=== PATIENT | female | born 1995 | race Caucasian/White ===

== ENCOUNTER → 2018-11-05 | Outpatient (REF) | payer OTHER ==
[2018-11-05 14:26] LABS: INFLUENZA A AMPLIFICATION POSITIVE (NEGATIVE); INFLUENZA B AMPLIFICATION NEGATIVE (NEGATIVE)
== END ==
LOC: M LAB REF 13:29
PROVIDERS: ATTEND Physician Assistant
DX: J11.1 Influenza due to unidentified influenza virus with other respiratory manifestations (principal)

== ENCOUNTER → 2019-03-03 | Outpatient (CLI) | payer OTHER ==
--- NOTE | 2019-03-03 11:48 | REP ---
LEFT KNEE SERIES, FIVE VIEWS: There is no evidence of an acute fracture, dislocation or intrinsic bone disease. IMPRESSION: No fracture or dislocation. Electronically Signed by Velasquez Lieberman MD 03/03/2019 04:37 P
== END ==
LOC: M WUC 10:35
PROVIDERS: ATTEND Physician Assistant
DX: S83.422A Sprain of lateral collateral ligament of left knee, initial encounter (principal); X58.XXXA Exposure to other specified factors, initial encounter; Y92.89 Other specified places as the place of occurrence of the external cause

== ENCOUNTER → 2019-05-14 | Outpatient (REF) | payer OTHER, MEDICAID ==
[2019-05-14 17:27] LABS: ALBUMIN 4.1 GM/DL (3.2-5.2); ALT/SGPT 28 U/L (12-78); BILIRUBIN,TOTAL 0.3 MG/DL (0.2-1.0); BLOOD UREA NITROGEN 19 MG/DL (7-18); CALCIUM LEVEL 9.1 MG/DL (8.5-10.1); CARBON DIOXIDE LEVEL 25 MEQ/L (21-32); CHLORIDE LEVEL 105 MEQ/L (98-107); CHOLESTEROL LEVEL 151 MG/DL (<200); CHOLESTEROL RISK RATIO 2.126 (<5); CREATININE FOR GFR 0.62 MG/DL (0.55-1.30); GLOMERULAR FILTRATION RATE > 60.0 (>60); GLUCOSE, FASTING 88 MG/DL (70-100); HCG, SERUM QUANTITATIVE < 1.0 MIU/ML; HDL CHOLESTEROL 71 MG/DL (>40); LDL CHOLESTEROL 72 MG/DL (<100); NON-HDL-C 80 MG/DL; POTASSIUM SERUM 4.1 MEQ/L (3.5-5.1); SODIUM LEVEL 138 MEQ/L (136-145); THYROID STIMULATING HORMONE 0.514 uIU/ML (0.358-3.740); TOTAL PROTEIN 7.4 GM/DL (6.4-8.2); TRIGLYCERIDES LEVEL 38 MG/DL (<150)
[2019-05-14 17:29] LABS: BASO # 0.1 10^3/uL (0.0-0.2); BASO % 0.9 % (0.0-1.0); EOS # 0.2 10^3/uL (0.0-0.50); EOS % 2.9 % (0.0-3.0); HEMATOCRIT 41.6 % (36.0-47.0); HEMOGLOBIN 13.9 g/dl (12.0-15.5); LYMPH # 1.9 10^3/uL (1.5-6.5); LYMPH % 24.4 % (24.0-44.0); MEAN CORPUSCULAR HEMOGLOBIN 30.3 pg (27.0-33.0); MEAN CORPUSCULAR HGB CONC 33.4 g/dl (32.0-36.5); MEAN CORPUSCULAR VOLUME 90.8 fl (80.0-96.0); MONO # 0.4 10^3/uL (0.0-0.8); MONO % 4.9 % (0.0-5.0); NEUTROPHILS # 5.3 10^3/uL (1.8-7.7); NEUTROPHILS % 66.5 % (36.0-66.0); PLATELET COUNT, AUTOMATED 236 10^3/uL (150-450); RED BLOOD COUNT 4.58 10^6/uL (4.00-5.40); WHITE BLOOD COUNT 7.9 10^3/uL (4.0-10.0)
[2019-05-14 18:10] LABS: HEMOGLOBIN A1c 5.2 %
== END ==
LOC: M LAB REF 16:37
PROVIDERS: ATTEND Nurse Practitioner Family
DX: Z00.01 Encounter for general adult medical examination with abnormal findings (principal); N91.2 Amenorrhea, unspecified

== ENCOUNTER → 2020-01-13 | Outpatient (REF) | payer OTHER ==
[2020-01-13 17:55] LABS: HEMATOCRIT 40.4 % (36.0-47.0); HEMOGLOBIN 13.5 g/dl (12.0-15.5); MEAN CORPUSCULAR HEMOGLOBIN 29.5 pg (27.0-33.0); MEAN CORPUSCULAR HGB CONC 33.4 g/dl (32.0-36.5); MEAN CORPUSCULAR VOLUME 88.2 fl (80.0-96.0); PLATELET COUNT, AUTOMATED 271 10^3/uL (150-450); RED BLOOD COUNT 4.58 10^6/uL (4.00-5.40); WHITE BLOOD COUNT 10.6 10^3/uL (4.0-10.0)
[2020-01-13 18:23] LABS: HCG, SERUM QUANTITATIVE 6220 MIU/ML
[2020-01-14 09:18] LABS: HEPATITIS B SURFACE ANTIGEN NEGATIVE (NEGATIVE)
[2020-01-14 09:45] LABS: HEPATITIS C VIRUS ABY INDEX 0.1 INDEX (<0.8)
[2020-01-14 09:46] LABS: HIV 1&2 SCREEN CENTAUR NEGATIVE (NEGATIVE)
== END ==
LOC: M LAB REF 17:20
PROVIDERS: ATTEND Obstetrics & Gynecology
DX: Z32.01 Encounter for pregnancy test, result positive (principal)

== ENCOUNTER → 2020-01-20 | Outpatient (CLI) | payer OTHER ==
--- NOTE | 2020-01-20 19:01 | REP ---
Clinical: Dating and viability. Technique: Transabdominal first trimester obstetrical ultrasound with color Doppler evaluation. Findings: This examination demonstrates early intrauterine including gestational sac, yolk sac and pole. CRL of 5 mm corresponds to 6 weeks 1 day gestational age with estimated date of delivery 09/13/2020. heart rate equals 118 beats per minute. Impression: Single live early intrauterine at 6 weeks 1 day gestational age. Complete anatomical assessment should be performed at 19-20 weeks.
== END ==
LOC: M WHC 08:07
PROVIDERS: ATTEND Obstetrics & Gynecology
DX: O36.80X0 Pregnancy with inconclusive fetal viability, not applicable or unspecified (principal); Z3A.01 Less than 8 weeks gestation of pregnancy

== ENCOUNTER 2020-01-24 10:30 | Emergency (ER) | payer OTHER ==
[~2020-01-24] VITALS: Ht 170.2 cm; Wt 80.8 kg
[2020-01-24] MEDS ORDERED: METOCLOPRAMIDE INJ 10MG/2ML VIAL (J2765 PER 1) IV ONE (11:15)
[2020-01-24] MEDS ORDERED: NS 1,000 ML IV ONE (11:15)
[2020-01-24 11:18] LABS: HEMATOCRIT 41.4 % (36.0-47.0); MEAN CORPUSCULAR HEMOGLOBIN 28.9 pg (27.0-33.0); MEAN CORPUSCULAR HGB CONC 33.8 g/dl (32.0-36.5); MEAN CORPUSCULAR VOLUME 85.4 fl (80.0-96.0); PLATELET COUNT, AUTOMATED 267 10^3/uL (150-450); RED BLOOD COUNT 4.85 10^6/uL (4.00-5.40); WHITE BLOOD COUNT 11.4 10^3/uL (4.0-10.0)
[2020-01-24 12:17] LABS: ALBUMIN 4.1 GM/DL (3.2-5.2); ALT/SGPT 23 U/L (12-78); BILIRUBIN,DIRECT < 0.1 MG/DL (0.0-0.2); BILIRUBIN,TOTAL 0.6 MG/DL (0.2-1.0); HCG, SERUM QUANTITATIVE 39535 MIU/ML; LIPASE 94 U/L (73-393); TOTAL PROTEIN 7.7 GM/DL (6.4-8.2)
[2020-01-24 12:55] VITALS: BP 132/67
== END 2020-01-24 12:58 | disposition home or self-care (01) ==
LOC: M ED 10:30
DX: O21.9 Vomiting of pregnancy, unspecified (principal); Z3A.01 Less than 8 weeks gestation of pregnancy
CPT/HCPCS: 80047; 80076; 83690; 84702; 85027; 96361; 96365; 99283; J2765

== ENCOUNTER 2023-05-21 20:25 | Emergency (ER) | payer OTHER ==
[~2023-05-21] VITALS: Ht 172.7 cm; Wt 67.3 kg
[2023-05-21] MEDS ORDERED: NS 1,000 ML IV ONE (20:50)
[2023-05-21 21:24] LABS: BASO # 0.1 10^3/uL (0.0-0.2); BASO % 0.6 % (0.0-1.0); EOS # 0.2 10^3/uL (0.0-0.5); EOS % 1.9 % (0.0-3.0); HEMOGLOBIN 11.8 g/dl (12.0-15.5); LYMPH # 2.4 10^3/uL (1.5-5.0); LYMPH % 27.1 % (24.0-44.0); MEAN CORPUSCULAR HEMOGLOBIN 29.8 pg (27.0-33.0); MEAN CORPUSCULAR HGB CONC 33.7 g/dl (32.0-36.5); MEAN CORPUSCULAR VOLUME 88.4 fl (80.0-96.0); MONO # 0.4 10^3/uL (0.0-0.8); MONO % 4.6 % (2.0-8.0); NEUTROPHILS # 5.7 10^3/uL (1.5-8.5); NEUTROPHILS % 65.3 % (36.0-66.0); PLATELET COUNT, AUTOMATED 227 10^3/uL (150-450); RED BLOOD COUNT 3.96 10^6/uL (4.00-5.40); WHITE BLOOD COUNT 8.8 10^3/uL (4.0-10.0)
[2023-05-21 21:27] LABS: BLOOD UREA NITROGEN 10 MG/DL (9-23); CALCIUM LEVEL 8.3 MG/DL (8.5-10.1); CARBON DIOXIDE LEVEL 21 MMOL/L (20-31); CHLORIDE LEVEL 110 MMOL/L (98-107); CREATININE FOR GFR 0.54 MG/DL (0.55-1.30); GLOMERULAR FILTRATION RATE > 60.0 (>60); GLUCOSE, FASTING 88 MG/DL (60-100); POTASSIUM SERUM 3.2 MMOL/L (3.5-5.1); SODIUM LEVEL 141 MMOL/L (136-145)
[2023-05-21 21:31] LABS: THYROID STIMULATING HORMONE 3.617 uIU/ML (0.55-4.78)
[2023-05-21 21:53] LABS: ETHYL ALCOHOL (ETHANOL) 0.003 % (0.000-0.010); HCG, SERUM QUALITATIVE NEGATIVE (NEGATIVE)
[2023-05-21 21:55] LABS: ACETAMINOPHEN LEVEL < 2.0 UG/ML (10.0-20.0); SALICYLATE LEVEL < 3.0 MG/DL (<30)
[2023-05-21 21:58] LABS: CPK CREATINE PHOSPHOKINASE 106 U/L (34-145); MB/CK RELATIVE INDEX 0.94 (< OR =4)
[2023-05-21 22:15] VITALS: BP 133/81; TEMP 98; O2SAT 100
== END 2023-05-21 22:37 | disposition home or self-care (01) ==
LOC: M ED 20:25
DX: R42 Dizziness and giddiness (principal); R53.1 Weakness; J45.909 Unspecified asthma, uncomplicated

== ENCOUNTER → 2023-06-24 | Outpatient (REF) | payer OTHER | LOC: M LAB REF 11:44 | PROVIDERS: ATTEND Physician Assistant | DX: J02.9 Acute pharyngitis, unspecified (principal) ==

== ENCOUNTER → 2024-08-17 | Outpatient (REF) | payer OTHER | LOC: M LAB REF 21:25 | PROVIDERS: ATTEND Physician Assistant Medical | DX: B34.9 Viral infection, unspecified (principal) ==

== ENCOUNTER → 2024-11-26 | Outpatient (REF) | payer OTHER ==
[2024-11-26 14:41] LABS: HEMATOCRIT 43.2 % (36.0-47.0); HEMOGLOBIN 14.5 g/dl (12.0-15.5); MEAN CORPUSCULAR HEMOGLOBIN 29.9 pg (27.0-33.0); MEAN CORPUSCULAR HGB CONC 33.6 g/dl (32.0-36.5); MEAN CORPUSCULAR VOLUME 89.1 fl (80.0-96.0); PLATELET COUNT, AUTOMATED 239 10^3/uL (150-450); RED BLOOD COUNT 4.85 10^6/uL (4.00-5.40); WHITE BLOOD COUNT 8.2 10^3/uL (4.0-10.0)
[2024-11-26 15:12] LABS: ALBUMIN 4.3 G/DL (3.2-5.2); ALKALINE PHOSPHATASE 53 U/L (35-104); ALT/SGPT 26 U/L (7.0-40); AST/SGOT 18 U/L (<34); BILIRUBIN,TOTAL 0.4 MG/DL (0.3-1.2); BLOOD UREA NITROGEN 14 MG/DL (9-23); CALCIUM LEVEL 9.3 MG/DL (8.5-10.1); CARBON DIOXIDE LEVEL 22 MMOL/L (20-31); CHLORIDE LEVEL 105 MMOL/L (98-107); CREATININE FOR GFR 0.57 MG/DL (0.55-1.30); GLOMERULAR FILTRATION RATE > 60.0 (>60); GLUCOSE, FASTING 100 MG/DL (60-100); POTASSIUM SERUM 4.6 MMOL/L (3.5-5.1); SODIUM LEVEL 139 MMOL/L (136-145); TOTAL PROTEIN 7.6 G/DL (5.7-8.2)
[2024-11-26 15:14] LABS: TOTAL 25(OH) VITAMIN D 38.6 NG/ML (20.0-100.0)
[2024-11-26 15:15] LABS: THYROID STIMULATING HORMONE 0.627 uIU/ML (0.55-4.78)
== END ==
LOC: M LAB REF 12:36
PROVIDERS: ATTEND Student in an Organized Health Care Education/Training Program
DX: Z00.01 Encounter for general adult medical examination with abnormal findings (principal)

== ENCOUNTER → 2025-03-29 | Outpatient (CLI) | payer OTHER ==
[2025-03-29 16:56] LABS: PLATELET COUNT, AUTOMATED 223 10^3/uL (150-450)
[2025-03-29 17:20] LABS: Trichomonas vaginalis (AMP) NOT DETECTED (NEGATIVE)
[2025-03-29 17:43] LABS: GC DNA AMPLIFICATION NEGATIVE (NEGATIVE)
[2025-03-29 17:50] LABS: HIV 1&2 SCREEN NEGATIVE (NEGATIVE)
[2025-03-29 17:57] LABS: HEPATITIS C VIRUS ABY INDEX < 0.02 INDEX (<0.8)
== END ==
LOC: M PLALAB 12:09
PROVIDERS: ATTEND Nurse Practitioner Family
DX: Z34.81 Encounter for supervision of other normal pregnancy, first trimester (principal)

== ENCOUNTER 2025-05-25 06:20 | Emergency (ER) | payer OTHER ==
[~2025-05-25] VITALS: Ht 170.2 cm; Wt 81.8 kg
[2025-05-25] MEDS ORDERED: PRENMIS3 PO (07:12)
[2025-05-25] MEDS ORDERED: BENA25CA4 PO (07:12)
[2025-05-25] MEDS: predniSONE 20 MG TAB PO ONE (07:16)
[2025-05-25] MEDS ORDERED: PRED20TA PO (07:17)
[2025-05-25 07:39] VITALS: BP 121/76; TEMP 97.3; O2SAT 98
== END 2025-05-25 07:45 | disposition home or self-care (01) ==
LOC: M ED 06:20
DX: O9A.212 Injury, poisoning and certain other consequences of external causes complicating pregnancy, second trimester (principal); T63.461A Toxic effect of venom of wasps, accidental (unintentional), initial encounter; O99.512 Diseases of the respiratory system complicating pregnancy, second trimester; J45.909 Unspecified asthma, uncomplicated; Z3A.22 22 weeks gestation of pregnancy
CPT/HCPCS: 99284; J7512

== ENCOUNTER → 2025-05-26 | Outpatient (CLI) | payer OTHER ==
[~2025-05-26] MED LIST: BENA25CA4 PO; PRED20TA PO; PRENMIS3 PO
== END ==
LOC: M WHC 07:03
PROVIDERS: ATTEND Obstetrics & Gynecology
DX: Z34.82 Encounter for supervision of other normal pregnancy, second trimester (principal); Z3A.22 22 weeks gestation of pregnancy

== ENCOUNTER → 2025-06-10 | Outpatient (CLI) | payer OTHER ==
[2025-06-10 17:55] LABS: PLATELET COUNT, AUTOMATED 209 10^3/uL (150-450)
[2025-06-10 17:59] LABS: GLUCOSE CHALLENGE TEST 1 HOUR 120 MG/DL (LESS THAN 140)
[2025-06-10 18:27] LABS: HIV 1&2 SCREEN NEGATIVE (NEGATIVE)
[2025-06-10 18:35] LABS: HEPATITIS C VIRUS ABY INDEX 0.03 INDEX (<0.8)
[2025-06-10 19:35] LABS: Trichomonas vaginalis (AMP) NOT DETECTED (NEGATIVE)
[2025-06-10 19:59] LABS: GC DNA AMPLIFICATION NEGATIVE (NEGATIVE)
== END ==
LOC: M PLALAB 13:58
PROVIDERS: ATTEND Obstetrics & Gynecology
DX: Z34.92 Encounter for supervision of normal pregnancy, unspecified, second trimester (principal)

== ENCOUNTER 2025-06-21 12:42 | Outpatient (CLI) | payer OTHER ==
[~2025-06-21] VITALS: Ht 170.2 cm; Wt 85.7 kg
[2025-06-21 12:59] VITALS: BP 118/55
[2025-06-21] MEDS ORDERED: ACET-907 PO (13:04)
[2025-06-21] MEDS ORDERED: HOME MED LIST COMPLETE! XX SCH (13:05)
[2025-06-21 14:07] VITALS: BP 119/57
[2025-06-21 15:39] LABS: PLATELET COUNT, AUTOMATED 216 10^3/uL (150-450)
[2025-06-21 15:54] LABS: INR 0.86
== END 2025-06-21 15:38 | disposition home or self-care (01) ==
LOC: M LDO 12:42
PROVIDERS: ATTEND Student in an Organized Health Care Education/Training Program
DX: O26.893 Other specified pregnancy related conditions, third trimester (principal); W50.1XXA Accidental kick by another person, initial encounter; Y92.9 Unspecified place or not applicable; Y93.9 Activity, unspecified; Y99.9 Unspecified external cause status; Z3A.26 26 weeks gestation of pregnancy
CPT/HCPCS: 36415; 59025; 85027; 85384; 85610; 85730; G0463

== ENCOUNTER 2025-07-20 13:34 | Outpatient (CLI) | payer OTHER ==
[~2025-07-20] VITALS: Ht 170.2 cm; Wt 89.9 kg
[~2025-07-20 13:34] MED LIST changes: +ACET-907 PO
[2025-07-20 13:55] VITALS: BP 134/81
[2025-07-20] MEDS ORDERED: HOME MED LIST COMPLETE! XX SCH (14:00)
[2025-07-20 14:40] VITALS: BP 120/74
== END 2025-07-20 15:30 | disposition home or self-care (01) ==
LOC: M LDO 13:34
PROVIDERS: ATTEND Advanced Practice Midwife
DX: O99.63 Diseases of the digestive system complicating the puerperium (principal); K42.9 Umbilical hernia without obstruction or gangrene; Z3A.30 30 weeks gestation of pregnancy
CPT/HCPCS: 59025; 76705; G0463

== ENCOUNTER → 2025-09-13 | Outpatient (CLI) | payer OTHER ==
[~2025-09-13] MED LIST changes: +ACET-1349 PO; +ACET-897 PO; +ACET32TAB PO; +ALBU2.5V10 NEB; +ALBU8.5H INH; +IBUP600T42 PO; +PEPT262S PO
== END ==
LOC: M WHC 13:12
PROVIDERS: ATTEND Nurse Practitioner Family
DX: O28.8 Other abnormal findings on antenatal screening of mother (principal)

== ENCOUNTER → 2025-09-13 | Outpatient (REF) | payer OTHER | LOC: M SFHCWAGY 13:05 | PROVIDERS: ATTEND Nurse Practitioner Family | DX: Z34.83 Encounter for supervision of other normal pregnancy, third trimester (principal) ==